=== PATIENT | male | born 1935 | race Caucasian/White ===

== ENCOUNTER 2016-10-01 14:26 | Inpatient (IN) | payer MEDICARE ==
[~2016-10-01] VITALS: Ht 180.3 cm; Wt 98.8 kg
[2016-10-04] MEDS ORDERED: GABA100C4 PO (08:24)
[2016-10-04] MEDS ORDERED: CARD1TAB PO (08:24)
[2016-10-04] MEDS ORDERED: SERT25TA83 PO (08:24)
--- NOTE | 2016-10-07 16:59 | MH ---
cc: Blair LAI M.D. DATE OF ADMISSION: 10/11/2016 ADMITTING DIAGNOSIS: Osteoarthritic degeneration right knee now being admitted for right total knee arthroplasty. ADMISSION HISTORY AND PHYSICAL This pleasant 81-year-old male is being admitted today for right total knee arthroplasty due to severe painful osteoarthritic degeneration right knee. PAST MEDICAL HISTORY: 1. Other past history the patient has a history of asthma. 2. He has had colon cancer in the past 3. depression 4. dizzy spells 5. emphysema 6. hernia 7. low back pain 8. neck pain 9. recent infection in his ear which was treated CURRENT MEDICATIONS 1. Gabapentin 2. Serotonin 3. Doxazosin PAST SURGICAL HISTORY: He had previous surgeries toe amputation in the past. REVIEW OF SYSTEMS Noncontributory. FAMILY HISTORY Noncontributory. SOCIAL HISTORY: Does not smoke or drink. ALLERGIES NO KNOWN DRUG ALLERGIES. PHYSICAL EXAMINATION IN GENERAL: We find a 81-year male well-developed, well-nourished x3 complain of pain in his right knee. VITAL SIGNS: Blood pressure 120/82, pulse 77 and regular, respirations 18, temperature 97.7, pulse oximetry 97% on room air 18. HEAD, EYES, EARS, NOSE, AND THROAT: Eyes Pupils equal, round, reactive to light and accommodation, extraocular muscles intact. Ears, nose, mouth clear. NECK: Neck is supple. LUNGS: Clear. HEART: Regular rate. ABDOMEN: Soft, positive bowel sounds, nontender. EXTREMITIES: The extremities reveals right knee to be tender with crepitance throughout range of motion. NEUROVASCULAR: He is otherwise neurovascular intact to his toes. IMPRESSION At this time is severe painful osteoarthritic degeneration right knee. PLAN: The plan is admission for right total knee arthroplasty today. The patient understands procedure well understands the use Hibiclens scrub and Bactroban preoperatively is given a prescription postoperative pain and anticoagulation control in the office and plans on going home after surgery. MD RAVEN Adames/laurence /4:36 PM /4:49 PM
[2016-10-11] MEDS ORDERED: TRANEXAMIC ACID INJ 988 MG in SODIUM CHLORIDE 0.9% INJ 100 ML IV SCH ×4 (08:15)
[2016-10-11] MEDS ORDERED: CHLORHEXIDINE GLUCONATE 4% SOLN 120 ML BTL TOP SCH (08:15)
[2016-10-11] MEDS ORDERED: EXPAREL PERI-ARTICULAR INJECTION (TOTAL VOL. 120 ML) P-ARTICULR SCH ×2 (08:15)
[2016-10-11] MEDS ORDERED: VANCOMYCIN 1000 MG/NS 250 ML (for <70 kg) IV SCH ×2 (08:15)
[2016-10-11] MEDS ORDERED: ceFAZolin 2 GM PREMIX 50 ML IV SCH (08:15)
[2016-10-11] MEDS ORDERED: LISI-515 PO (08:29)
[2016-10-11 08:31] VITALS: BP 114/69; PULSE 81; RESP 16; TEMP 98.3; O2SAT 94
[2016-10-11] MEDS ORDERED: BUPIVACAINE LIPOSO PF 1.3% INJ 20 ML, BUPIVACAINE PF 0.25% INJ 20 ML in SODIUM CHLORIDE... P-ARTICULR SCH (08:34)
[2016-10-11] MEDS ORDERED: METOPROLOL TARTRATE 25 MG TAB PO PRN (08:45)
[2016-10-11] MEDS ORDERED: INSULIN HUMAN REGULAR 1,000 UNITS/10 ML VIAL SQ PRN (08:45)
[2016-10-11] MEDS ORDERED: SODIUM CHLORID 0.9% 500 ML IV SCH (08:45)
[2016-10-11] MEDS ORDERED: LACTATED RINGER'S 1000 ML IV SCH (08:45)
--- NOTE | 2016-10-11 10:35 | HHI.FF ---
Face to Face Verification Diagnosis: (1) Status post total right knee replacement Physical Therapy Gait training Knee: Total knee, Protocol: Right, Full weight bearing Canvas Knee Splint: When in bed & 2 pillows btw thighs Nursing RN: 3 days/week x 2 weeks Nursing: [facility] teaching, Dressing changes Dressing Changes: Daily dressing change, 4x4s, Gauze, Paper tape I have seen patient Adryan Boyce on 10/11/16. My clinical findings support the need for the requested home health care services because: Limited ability to care for self High risk of falls I certify that my clinical findings support that this patient is homebound because: Unsteady gait/balance Blair Hernandez MD Oct 11, 2016 10:35
[2016-10-11] MEDS ORDERED: CPMMACHINE (10:37)
[2016-10-11] MEDS ORDERED: WALKER WHEELS/F1 MIS (10:37)
[2016-10-11] MEDS ORDERED: MISC-163 (10:37)
[2016-10-11] MEDS ORDERED: ACETAMINOPHEN/HYDROcodone 325 MG/7.5 MG TAB PO PRN (10:45)
[2016-10-11] MEDS ORDERED: NALOXONE HCL 0.4 MG/ML AMP IV PRN ×2 (10:45)
[2016-10-11] MEDS ORDERED: Post-op Orders (for Pharmacy) MISC XX ONE (10:45)
[2016-10-11] MEDS ORDERED: SODIUM CHLORIDE 0.9% FLUSH 5 ML FLUSH IVF PRN (10:45)
[2016-10-11] MEDS ORDERED: TRANEXAMIC ACID INJ 0 MG in SODIUM CHLORIDE 0.9% INJ 100 ML IV SCH (10:45)
[2016-10-11] MEDS ORDERED: ONDANSETRON HCL 4 MG/2 ML VIAL IVP PRN (10:45)
[2016-10-11] MEDS ORDERED: MORPHINE SULFATE 30 MG/30 ML PCA IV SCH (10:45)
[2016-10-11] MEDS ORDERED: ACETAMINOPHEN 325 MG TAB PO PRN (10:45)
[2016-10-11] MEDS ORDERED: diphenhydrAMINE HCL 50 MG/ML VIAL IV PRN (10:45)
[2016-10-11] MEDS ORDERED: MIDAZOLAM HCL 5 MG/5 ML VIAL ONE (10:46)
[2016-10-11] MEDS ORDERED: PILL SPLITTER OTHER PRN (11:45)
[2016-10-11] MEDS ORDERED: ePHEDrine/NS 25 MG/5 ML SYR IV ONE (12:00)
[2016-10-11] MEDS ORDERED: PHENYLEPH/NS 1000 MCG/10 ML SYR IV ONE (12:00)
[2016-10-11] MEDS ORDERED: NEOSTIGMINE 3 MG/3 ML SYR IV ONE (12:00)
[2016-10-11] MEDS ORDERED: LACTATED RINGER'S 1000 ML INJ 1,000 ML IV ONE (12:00)
[2016-10-11] MEDS ORDERED: PROPOFOL 200 MG/20 ML AMP IV ONE (12:00)
[2016-10-11] MEDS ORDERED: ONDANSETRON HCL 4 MG/2 ML VIAL IV PUSH ONE (12:00)
[2016-10-11] MEDS ORDERED: BUPIVACAINE HCL PF 0.5% 30 ML VIAL NB ONE (13:01)
[2016-10-11] MEDS ORDERED: ceFAZolin INJ 1,000 MG VIAL XX ONE (13:30)
[2016-10-11] MEDS ORDERED: BUPIVACAINE LIPOSOME PF 1.3% 20 ML VIAL ONE (13:30)
[2016-10-11] MEDS: PCA - TOTAL MG MORPHINE DELIVERED PER SHIFT SCH ×2 (14:00→22:00)
[2016-10-11] MEDS: LACTATED RINGER'S 1000 ML INJ 1,000 ML IV SCH ×2 (16:40→23:02)
--- NOTE | 2016-10-11 16:42 | RADRPT ---
EXAM DATE/TIME: 10/11/2016 15:58 [facility] COMPARISON: No previous studies available for comparison. INDICATIONS : Post op right knee surgery. MEDICAL HISTORY : None. SURGICAL HISTORY : None. ENCOUNTER: Initial ACUITY: 1 day PAIN SCORE: 0/10 LOCATION: Right knee FINDINGS: Two view examination of the right knee demonstrates total knee arthroplasty. All 3 components are eliza ropriately positioned. No fracture. CONCLUSION: Appropriate postoperative appearance of the right knee status post total arthroplasty. Adis Elam MD on October 11, 2016 at 16:40 Board Certified Radiologist. This report was verified electronically.
[2016-10-11] MEDS ORDERED: DO NOT ADM ANY ANTICOAGULANT DRUGS XX PRN (17:45)
[2016-10-11] MEDS: GABAPENTIN 100 MG CAP PO SCH ×2 (20:07→20:18)
[2016-10-11] MEDS: SERTRALINE HCL 50 MG TAB PO SCH ×2 (20:08→20:18)
[2016-10-11 20:27] VITALS: BP 120/63; PULSE 89; RESP 18; TEMP 95.9; O2SAT 96
[2016-10-11 20:58] VITALS: BP 126/63; PULSE 87; RESP 21; TEMP 96.9; O2SAT 94
[2016-10-11] MEDS ORDERED: TEMAZEPAM 15 MG CAP PO PRN (21:00)
[2016-10-11] MEDS: SODIUM CHLORIDE 0.9% FLUSH 5 ML FLUSH IVF SCH (21:00)
[2016-10-11] MEDS: DOXAZOSIN MESYLATE 1 MG TAB PO SCH (22:39)
[2016-10-12] VITALS (9 sets, daily range): BP systolic 93–132; BP diastolic 50–65; PULSE 74–93; RESP 16–22; TEMP 96.2–98.3; O2SAT 91–98
[2016-10-12] MEDS: PCA - TOTAL MG MORPHINE DELIVERED PER SHIFT SCH (06:00)
[2016-10-12 08:10] LABS: HEMATOCRIT 30.3 % (39.0-51.0); REVIEW FLAG FINAL
[2016-10-12] MEDS: SODIUM CHLORIDE 0.9% FLUSH 5 ML FLUSH IVF SCH ×2 (08:44→21:18)
--- NOTE | 2016-10-12 08:53 | PD.ORT.PN ---
Subjective Subjective Remarks pt comfortable. No complaints. Objective Vitals Vital Signs Date Time Temp Pulse Resp B/P Pulse Ox O2 Delivery O2 Flow Rate FiO2 10/12/16 08:00 97.6 74 18 100/50 94 10/12/16 06:00 21 10/12/16 04:00 97.8 86 16 106/60 98 10/12/16 01:48 94 10/12/16 00:00 98.3 86 16 111/53 92 10/11/16 22:00 20 10/11/16 20:58 96.9 87 21 126/63 94 10/11/16 20:27 95.9 89 18 120/63 96 10/11/16 18:00 82 12 140/69 95 Room Air 10/11/16 17:00 97.2 85 12 160/83 96 Nasal Cannula 2 10/11/16 16:45 82 12 147/81 98 Nasal Cannula 2 10/11/16 16:40 14 10/11/16 16:30 84 14 145/82 96 Nasal Cannula 2 10/11/16 16:00 83 12 140/79 94 Nasal Cannula 2 10/11/16 15:58 97.7 86 14 138/83 95 Nasal Cannula 2 I/O 10/11/16 10/11/16 10/11/16 10/12/16 10/12/16 10/12/16 07:00 15:00 23:00 07:00 15:00 23:00 Intake Total 1390 ml 1080 ml Output Total 100 ml 900 ml Balance 1290 ml 180 ml Intake Oral 240 ml 1080 ml IV Total 150 ml Other 1000 ml Output Urine Total 900 ml Estimated Blood Loss 100 ml # Voids 1 # Bowel Movements 0 Result Diagram: 10/12/16 0730 Imaging Last 24 hours Impressions Knee X-Ray 10/11/16 1032 Signed Impressions: Service Date/Time: Tuesday, October 11, 2016 15:58 - CONCLUSION: Appropriate postoperative appearance of the right knee status post total arthroplasty. Adis Elam MD Objective Remarks Able to straight leg raise. Dressing dry and intact. Eating breakfast in bed at present. No calf tenderness. Assessment & Plan Ortho Post Op Day #: 1 Problem List: Assessment and Plan OOB, PT, daily wound care. DC [employer] today. Blair Hernandez MD Oct 12, 2016 08:53
[2016-10-12] MEDS ORDERED: LISINOPRIL 20 MG TAB PO SCH (09:00)
[2016-10-12] MEDS: MAGNESIUM HYDROXIDE SUSP 30 ML CUP PO SCH ×2 (09:39→21:00)
[2016-10-12] MEDS: LACTATED RINGER'S 1000 ML INJ 1,000 ML IV SCH ×2 (11:32→21:18)
[2016-10-12] MEDS: ACETAMINOPHEN/HYDROcodone 325 MG/7.5 MG TAB PO PRN (13:37)
[2016-10-12] MEDS: ENOXAPARIN SODIUM 30 MG/0.3 ML SYRINGE SQ SCH (15:33)
--- NOTE | 2016-10-12 16:40 | PD.CONS ---
HPI Service [facility] Hospitalists Consult Requested By Dr. Isaac Hernandez Reason for Consult Medical Management Primary Care Physician Ananda Miner MD Diagnoses: History of Present Illness Mr. Boyce is a pleasant 81 y/o male with Osteoarthritis, COPD, CKD, stage 3, hyperlipidemia, and RLS. He was admitted to [facility] on 10/11/16 for elective right total knee arthroplasty with Dr. Hernandez. [facility] Hospitalist team was consulted to help with medical management. Pt is seen post-operatively and is doing well. Vital signs are stable and BP is low normal with home medications on hold. This is likely the result of anesthesia and pain medications. Pt otherwise without any complaints. Denies any chest pain, SOB, palpitations, dizziness, nausea/vomiting, abd pain, fevers or chills. Review of Systems Constitutional: DENIES: Fever, Chills Respiratory: DENIES: Shortness of breath Cardiovascular: DENIES: Chest pain, Palpitations Gastrointestinal: DENIES: Abdominal pain, Nausea, Vomiting Musculoskeletal: COMPLAINS OF: Joint pain Integumentary: DENIES: Rash Neurologic: DENIES: Headache Past Family Social History Past Medical History BPH Chronic major depression Restless leg syndrome Chronic headaches Hx of colon cancer s/p right hemicolectomy in 1997 and chemotherapy because of some invasion of the cancer through the colon wall Stage 3, CKD Cognitive function impaired/memory problems COPD, prescribed Ventolin inhaler PRN but has not been using it. Empty sella Osteoarthritis Hyperlipidemia Vitamin D insufficiency Past Surgical History Right knee arthroscopy and repair on meniscus in 2010 Exploratory laparotomy with removal of contaminated mesh and extensive ADRIEL in 2007 Incisional hernia repair in 2007 Right hemicolectomy in 1997 Rhinoplasty Penile prosthesis in 2005 and revision in 2006 Vasectomy in 1972 Reported Medications Lisinopril 20 Mg PO DAILY Sertraline 25 Mg PO HS Gabapentin 100 Mg PO HS Cardura 1 Mg Tab 1 Mg PO HS Allergies: Coded Allergies: No Known Allergies (Verified , 10/04/16) Family History Brother with myelofibrosis Mother with chronic pain Social History Hx of tobacco use, smoked 1/2ppd x 10 years and then an occasional cigar prior to quitting that around 2009 Occasional alcohol use 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[employer] [place] Physical Exam Vital Signs Vital Signs Date Time Temp Pulse Resp B/P Pulse Ox O2 Delivery O2 Flow Rate FiO2 10/12/16 13:35 124/65 10/12/16 12:01 96.2 93 18 93/54 91 10/12/16 11:01 97 21 10/12/16 08:00 97.6 74 18 100/50 94 10/12/16 06:00 21 10/12/16 04:00 97.8 86 16 106/60 98 10/12/16 01:48 94 10/12/16 00:00 98.3 86 16 111/53 92 10/11/16 22:00 20 10/11/16 20:58 96.9 87 21 126/63 94 10/11/16 20:27 95.9 89 18 120/63 96 10/11/16 18:00 82 12 140/69 95 Room Air 10/11/16 17:00 97.2 85 12 160/83 96 Nasal Cannula 2 10/11/16 16:45 82 12 147/81 98 Nasal Cannula 2 10/11/16 16:40 14 10/11/16 16:30 84 14 145/82 96 Nasal Cannula 2 Physical Exam GENERAL: This is a well-nourished, well-developed patient, in no apparent distress. HEENT: Atraumatic. Normocephalic. No temporal or scalp tenderness. No scleral icterus. Airway patent. NECK: Trachea midline, supple. CARDIO: Regular. RESP: CTA bilaterally. No wheezes, rales, or rhonchi. ABD: +BS, soft, non-tender, nondistended. EXT: Right knee bandages are c/d/i NEURO: Awake and alert. Motor and sensory grossly within normal limits. Normal speech. Laboratory Laboratory Tests Test 10/12/16 07:30 Hemoglobin 10.1 Hematocrit 30.3 Result Diagram: 10/12/16 0730 Imaging Last Impressions Knee X-Ray 10/11/16 1032 Signed Impressions: Service Date/Time: Tuesday, October 11, 2016 15:58 - CONCLUSION: Appropriate postoperative appearance of the right knee status post total arthroplasty. Adis Elam MD Assessment and Plan Problem List: (1) Osteoarthritis of right knee Status: Chronic Plan: - s/p right total knee arthroplasty on 10/11/[address] Hernandez - Post-op pain control per Ortho - IS - PT - Constipation precautions - DVT prophylaxis - Pt plans for HHC/PT at discharge. - Hold Lisinopril for now as BP is low/normal, resume as BP allows. Likely secondary to pain meds and anesthesia (2) COPD (chronic obstructive pulmonary disease) Status: Chronic Plan: - Stable. - Pt has Ventolin inhaler prescribed for as needed but does not use it much - Duonebs PRN (3) Hyperlipidemia Status: Chronic (4) Depression Status: Chronic Plan: - Cont. home meds (5) BPH (benign prostatic hyperplasia) Status: Chronic Plan: - Home meds resumed Assessment and Plan Patient examined. Assessment and plan formulated with Lena Quan PA-C. I agree with the above. Lena Quan Oct 12, 2016 16:40 Reyes Oliveira DO Oct 17, 2016 07:03
[2016-10-12] MEDS ORDERED: RESP: ALBUTEROL 2.5 MG/IPRATROPIUM 0.5 MG NEB (PRN) NEB (16:45)
[2016-10-12] MEDS: SENNOSIDES 8.6 MG TAB PO SCH (21:15)
[2016-10-12] MEDS: DOCUSATE SODIUM 100 MG CAP PO SCH (21:15)
[2016-10-12] MEDS: DOXAZOSIN MESYLATE 1 MG TAB PO SCH (21:17)
[2016-10-12] MEDS: MULTIVITAMINS/MINERALS THERAPEUTIC TAB PO SCH (21:17)
[2016-10-12] MEDS: GABAPENTIN 100 MG CAP PO SCH (21:17)
[2016-10-12] MEDS: SERTRALINE HCL 50 MG TAB PO SCH (21:17)
[2016-10-13] VITALS: BP 134/68; PULSE 93; RESP 20; TEMP 99.2; O2SAT 94
[2016-10-13] MEDS: ENOXAPARIN SODIUM 30 MG/0.3 ML SYRINGE SQ SCH ×2 (02:27→15:24)
[2016-10-13] MEDS: ACETAMINOPHEN/HYDROcodone 325 MG/7.5 MG TAB PO PRN ×3 (02:27→15:25)
[2016-10-13 07:08] LABS: BICARBONATE 25.7 MEQ/L (21.0-32.0); MAGNESIUM 2.1 MG/DL (1.5-2.5); POTASSIUM 4.5 MEQ/L (3.5-5.1)
[2016-10-13 07:14] LABS: AUTOMATED NEUTROPHIL # 6.2 TH/MM3 (1.8-7.7); BASOPHIL % 0.3 % (0.0-2.0); EOSINOPHIL % 0.2 % (0.0-4.0); HEMATOCRIT 28.3 % (39.0-51.0); HEMO FLAGS DIFF FINAL; LYMPH % 15.6 % (9.0-44.0); LYMPHOCYTE # 1.3 TH/MM3 (1.0-4.8); MEAN CELL VOLUME 83.1 FL (80.0-100.0); MEAN CORPUSCULAR HEMOGLOBIN 28.2 PG (27.0-34.0); MEAN CORPUSCULAR HGB CONC 33.9 % (32.0-36.0); NEUT % 71.9 % (16.0-70.0); PLATELET COUNT 169 TH/MM3 (150-450); RED BLOOD COUNT 3.41 MIL/MM3 (4.50-5.90); RED CELL DISTRIBUTION WIDTH 14.7 % (11.6-17.2); WHITE BLOOD COUNT 8.6 TH/MM3 (4.0-11.0)
[2016-10-13 08:00] VITALS: BP 121/63; PULSE 89; RESP 18; TEMP 98.2; O2SAT 92
--- NOTE | 2016-10-13 08:16 | PD.ORT.PN ---
Subjective Subjective Remarks pt comfortable. No complaints. Objective Vitals Vital Signs Date Time Temp Pulse Resp B/P Pulse Ox O2 Delivery O2 Flow Rate FiO2 10/13/16 00:00 99.2 93 20 134/68 94 10/12/16 20:58 97.4 90 22 132/62 94 10/12/16 16:00 98.2 93 16 124/59 93 10/12/16 13:35 124/65 10/12/16 12:01 96.2 93 18 93/54 91 10/12/16 11:01 97 21 I/O 10/12/16 10/12/16 10/12/16 10/13/16 10/13/16 10/13/16 07:00 15:00 23:00 07:00 15:00 23:00 Intake Total 1080 ml 1200 ml 480 ml Output Total 900 ml 200 ml Balance 180 ml 1200 ml 480 ml -200 ml Intake Oral 1080 ml 1200 ml 480 ml Output Urine Total 900 ml 200 ml # Voids 4 2 # Bowel Movements 0 0 Result Diagram: 10/13/16 0612 10/13/16 0612 Imaging Last 24 hours Impressions Knee X-Ray 10/11/16 1032 Signed Impressions: Service Date/Time: Tuesday, October 11, 2016 15:58 - CONCLUSION: Appropriate postoperative appearance of the right knee status post total arthroplasty. Adis Elam MD Objective Remarks Able to straight leg raise. Dressing dry and intact. Eating breakfast in chair. No calf tenderness. Assessment & Plan Ortho Post Op Day #: 2 Problem List: Assessment and Plan OOB, PT, daily wound care. Home tomorrow with C and PT. Blair Hernandez MD Oct 13, 2016 08:16
[2016-10-13] MEDS: DOCUSATE SODIUM 100 MG CAP PO SCH ×2 (09:00→20:38)
[2016-10-13] MEDS: MAGNESIUM HYDROXIDE SUSP 30 ML CUP PO SCH ×2 (09:00→20:38)
[2016-10-13] MEDS: SODIUM CHLORIDE 0.9% FLUSH 5 ML FLUSH IVF SCH ×2 (09:00→20:38)
[2016-10-13] MEDS: MULTIVITAMINS/MINERALS THERAPEUTIC TAB PO SCH ×2 (09:04→20:37)
[2016-10-13] MEDS ORDERED: BACITRACIN OINT 0.9 GM PKT TOP PRN (10:15)
[2016-10-13 11:00] VITALS: BP 142/78; PULSE 87; RESP 18; TEMP 98; O2SAT 96
[2016-10-13 12:00] VITALS: BP 142/77; PULSE 80; RESP 18; TEMP 98; O2SAT 96
[2016-10-13] MEDS: LACTATED RINGER'S 1000 ML INJ 1,000 ML IV SCH ×2 (12:32→20:39)
--- NOTE | 2016-10-13 12:50 | MP ---
cc: Blair HERNANDEZ M.D. DATE OF SURGERY: 10/11/2016 PREOPERATIVE DIAGNOSIS Osteoarthritic degeneration, right knee. POSTOPERATIVE DIAGNOSIS Osteoarthritic degeneration, right knee. SURGERY PERFORMED Right total knee arthroplasty using the Consensus knee system the bespoke pre-made cutting jigs, sizes 6 femur, 5 tibia, 10 insert and a size 3 patella 10 mm thick, and two batches of Weldon blue cement. SURGEON Dr. Hernandez DENTAL INSURANCE COORDINATOR FARIDA Anne ANESTHESIA General intubation and block. PROCEDURE After successful induction of anesthesia, the patient is placed on the operating room table in the supine position. The knee is prepped and draped in the usual manner. A tourniquet is inflated at the upper thigh and set to 300 mmHg pressure after exsanguination of the lower extremity. A longitudinal incision is made extending from 3 inches proximal to the superior pole of the patella, across the patella in longitudinal fashion, and down past the insertion of the tibial tubercle into the proximal tibia. The incision is carried down through subcutaneous tissue along the medial aspect of the patella and retinaculum, down through the capsule to expose the knee joint. The patella and patellar tendon are freed up enough to allow the patella to be inverted and retracted off the lateral side of the knee joint. The knee joint is left exposed. Small osteophytes are removed. All soft tissue is removed to allow proper position of the femoral and tibial cutting jig guide. The first femoral jig is then inserted along the distal end of the femur after first measuring to decide whether this is a small, medium, or large component. The notch is then drilled and the tibial cutting guide inserted into the femoral cutting guide, along with the ankle brace to allow for proper measurement of the tibial cutting surface that needed to be resected. Pins are inserted into the tibial cutting jig and femoral cutting jig to hold them in place. An oscillating saw is then used to resect the surface of the tibia. The surface of the tibia is then completely removed using sharp and blunt dissection. The anterior and posterior cuts of the femur are then made as well using an oscillating saw through the cutting guide. All guides are then removed and the varus/valgus angulation cutting guide applied to the femur for proper measurement of the proper amount of valgus. The anterior cutting guide for the femur is then inserted at the anterior femoral cuts made. Next, the first block trial is inserted into the femur to allow for proper condyle drill holes to be made which are then made followed by removal of the bone between the condyles using an oscillating saw as well as the bone removed at the most posterior surface of the condyle. After this, this guide is removed and the chamfer cuts made using the chamfer cutting guide from both anterior and posterior. Next, the femoral trial is then inserted, the tibial surface reflected anterior to expose the tibial surface and a tibial stem guide is inserted after first measuring for a standard, standard plus, large, or large plus surface to be used. After the stem is impacted the trial tibial surface is applied followed by the trial meniscal components. After full range of motion is found with the appropriate length meniscal components varying the patella is prepared by resecting the posterior aspect of the patella using an oscillating saw, inserting a trial. The trial is then removed and the cruciate cutting guide applied using the bur to cut the cruciate cuts. After cruciate cuts are made all trials are removed. The wound is irrigated copiously with antibiotic solution and Water Pik and the actual components inserted into place using the Consensus knee system the bespoke pre-made cutting jigs, sizes 6 femur, 5 tibia, 10 insert and a size 3 patella 10 mm thick, and two batches of Weldon blue cement. After the cement has hardened and the components are found to have full range of motion with no instability, the tourniquet is deflated, total tourniquet time being 51 minutes at 300 mmHg pressure. A 120 cc mixture of and 0.25% Marcaine plain was inserted around the knee joint for extra pain control. The wound was irrigated copiously with antibiotic solution, meticulous hemostasis achieved. The deep fascia was approximated with #2 Quill, subcutaneous tissue approximated using interrupted and running 2-0 and 3-0 Monocryl sutures. Steri-Strips, sterile dressing and knee immobilizer were applied. No drain was utilized. Estimated blood loss 100 cc. Sponge and suture count were correct. The patient tolerated the procedure well and left the Operating Room in satisfactory condition. MD RAVEN Adames/MAGGI /3:29 PM /12:34 PM
[2016-10-13 16:00] VITALS: BP 128/66; PULSE 88; RESP 18; TEMP 98.9; O2SAT 94
[2016-10-13 20:00] VITALS: BP 142/68; PULSE 87; RESP 18; TEMP 97.8; O2SAT 98
[2016-10-13] MEDS: SERTRALINE HCL 50 MG TAB PO SCH (20:37)
[2016-10-13] MEDS: GABAPENTIN 100 MG CAP PO SCH (20:37)
[2016-10-13] MEDS: DOXAZOSIN MESYLATE 1 MG TAB PO SCH (20:37)
[2016-10-13] MEDS: SENNOSIDES 8.6 MG TAB PO SCH (20:38)
[2016-10-14 00:24] VITALS: BP 134/65; PULSE 99; RESP 18; TEMP 100; O2SAT 95
[2016-10-14] MEDS: ENOXAPARIN SODIUM 30 MG/0.3 ML SYRINGE SQ SCH (03:01)
[2016-10-14 04:17] VITALS: BP 129/62; PULSE 93; RESP 18; TEMP 97; O2SAT 95
[2016-10-14 08:00] VITALS: BP 134/71; PULSE 100; RESP 18; TEMP 96.6; O2SAT 94
[2016-10-14] MEDS: MAGNESIUM HYDROXIDE SUSP 30 ML CUP PO SCH (09:00)
[2016-10-14] MEDS: DOCUSATE SODIUM 100 MG CAP PO SCH (09:00)
[2016-10-14] MEDS: MULTIVITAMINS/MINERALS THERAPEUTIC TAB PO SCH (09:02)
[2016-10-14] MEDS: SODIUM CHLORIDE 0.9% FLUSH 5 ML FLUSH IVF SCH (09:05)
[2016-10-14] MEDS: LACTATED RINGER'S 1000 ML INJ 1,000 ML IV SCH (10:55)
--- NOTE | 2016-10-14 11:35 | PD.ORT.PN ---
Subjective Subjective Remarks pt comfortable. No complaints. Objective Vitals Vital Signs Date Time Temp Pulse Resp B/P Pulse Ox O2 Delivery O2 Flow Rate FiO2 10/14/16 04:17 97.0 93 18 129/62 95 10/14/16 00:24 100.0 99 18 134/65 95 10/13/16 20:00 97.8 87 18 142/68 98 10/13/16 16:00 98.9 88 18 128/66 94 10/13/16 12:00 98.0 80 18 142/77 96 I/O 10/13/16 10/13/16 10/13/16 10/14/16 10/14/16 10/14/16 07:00 15:00 23:00 07:00 15:00 23:00 Intake Total 480 ml 2050 ml Output Total 200 ml 1200 ml Balance -200 ml 480 ml 850 ml Intake Oral 480 ml 2050 ml Output Urine Total 200 ml 1200 ml # Voids 2 # Bowel Movements 2 0 Result Diagram: 10/13/16 0612 10/13/16 0612 Imaging Last 24 hours Impressions Knee X-Ray 10/11/16 1032 Signed Impressions: Service Date/Time: Tuesday, October 11, 2016 15:58 - CONCLUSION: Appropriate postoperative appearance of the right knee status post total arthroplasty. Adis Elam MD Objective Remarks Able to straight leg raise. Dressing dry and intact. Eating breakfast in chair. No calf tenderness. Assessment & Plan Ortho Post Op Day #: 3 Problem List: Assessment and Plan OOB, PT, daily wound care. Home today with HHC and PT. Blair Hernandez MD Oct 14, 2016 11:35
--- NOTE | 2016-10-14 11:38 | HHI.DS ---
Discharge Summary Admission Date Oct 11, 2016 at 07:39 Discharge Date: Oct 14, 2016 Admitting Diagnosis Osteo-arthritic degeneration right knee Diagnosis: (1) Status post total right knee replacement Diagnosis: Principal Brief History This is a 81 year old male patient CBC/BMP: 10/13/16 0612 10/13/16 0612 Significant Findings Laboratory Tests Test 10/12/16 10/13/16 07:30 06:12 Hemoglobin 10.1 GM/DL 9.6 GM/DL (13.0-17.0) (13.0-17.0) Hematocrit 30.3 % 28.3 % (39.0-51.0) (39.0-51.0) Red Blood Count 3.41 MIL/MM3 (4.50-5.90) Neutrophils (%) (Auto) 71.9 % (16.0-70.0) Monocytes (%) (Auto) 12.0 % (0.0-8.0) Monocytes # (Auto) 1.0 TH/MM3 (0-0.9) Blood Urea Nitrogen 23 MG/DL (7-18) Creatinine 1.42 MG/DL (0.60-1.30) Estimat Glomerular Filtration 48 ML/MIN (>89) Rate Random Glucose 118 MG/DL (74-106) Calcium Level 8.2 MG/DL (8.5-10.1) PE at Discharge Able to straight leg raise. Dressing dry and intact. Eating breakfast in chair. No calf tenderness. Hospital Course Patient was admitted on 10/11/16 with severe pain in his right knee from osteoarthritic degeneration. On the day of admission he underwent a right total knee arthroplasty. He received a course of prophylactic IV antibiotics and started on anticoagulation therapy within 23 hours. He began out of bed tolerating food and fluids well and continued with daily wound care physical therapy he was able to have bowel movements without problem and was discharged on by mouth pain medication on postoperative day 3 in good condition with instructions for home healthcare and daily wound care. He was discharged with appointment to see Dr. Hernandez in 1 week time for follow-up care. Pt Condition on Discharge: Good Discharge Disposition: Disch w/ Home Health Serv Discharge Instructions Diet Instructions: As Tolerated, No Restrictions Activities You Can Perform: Full Weight Bearing, Shower Only-No Bath Activities to Avoid: Bathing, Driving Blair Hernandez MD Oct 14, 2016 11:38
[2016-10-14 12:00] VITALS: BP 140/69; PULSE 91; RESP 18; TEMP 96.8; O2SAT 96
== END 2016-10-14 16:10 | disposition home health service (06) | DRG 470 ==
LOC: HSDI 10-11 07:39 → N06B 10-11 19:48
PROVIDERS: ADMIT Surgery; ATTEND Surgery
PROC: 3E0T3BZ Introduction of Anesthetic Agent into Peripheral Nerves and Plexi, Percutaneous Approach (ICD-10-PCS; 2016-10-11)
PROC: 0SRC0J9 Replacement of Right Knee Joint with Synthetic Substitute, Cemented, Open Approach (ICD-10-PCS; principal; 2016-10-11 12:49)
DX: M17.11 Unilateral primary osteoarthritis, right knee (principal); N18.3 Chronic kidney disease, stage 3 (moderate); J44.9 Chronic obstructive pulmonary disease, unspecified; E55.9 Vitamin D deficiency, unspecified; F32.9 Major depressive disorder, single episode, unspecified; J45.909 Unspecified asthma, uncomplicated; Z85.038 Personal history of other malignant neoplasm of large intestine; R41.3 Other amnesia; M54.5 Low back pain; M54.2 Cervicalgia; N40.0 Benign prostatic hyperplasia without lower urinary tract symptoms; G25.81 Restless legs syndrome; R51 Headache; Z92.21 Personal history of antineoplastic chemotherapy; E78.5 Hyperlipidemia, unspecified; Z87.891 Personal history of nicotine dependence
CPT/HCPCS: 73560; 80048; 83735; 85014; 85018; 85025; 94150; C1776; C9290; J0690; J1650; J2250; J2270; J2370; J2405; J2710; J3010; J3370; J7050; J7120; L1830

== ENCOUNTER → 2016-10-04 | Outpatient (CLI) | payer MEDICARE ==
[~2016-10-04] MED LIST: CARD1TAB PO; CPMMACHINE; DOXA1TAB3 PO; GABA100C4 PO; GABA300 PO; LISI-515 PO; MISC-163; SERT25TA83 PO; WALKER WHEELS/F1 MIS; ZOLO25TA PO
[2016-10-04 08:51] LABS: AUTOMATED NEUTROPHIL # 3.2 TH/MM3 (1.8-7.7); BASOPHIL % 0.7 % (0.0-2.0); EOSINOPHIL # 0.2 TH/MM3 (0-0.4); EOSINOPHIL % 2.9 % (0.0-4.0); HEMO FLAGS DIFF FINAL; LYMPHOCYTE # 1.7 TH/MM3 (1.0-4.8); MEAN CELL VOLUME 83.4 FL (80.0-100.0); MEAN CORPUSCULAR HEMOGLOBIN 27.7 PG (27.0-34.0); MEAN CORPUSCULAR HGB CONC 33.2 % (32.0-36.0); MONO % 8.7 % (0.0-8.0); NEUT % 57.7 % (16.0-70.0); PLATELET COUNT 210 TH/MM3 (150-450); RED BLOOD COUNT 4.56 MIL/MM3 (4.50-5.90); WHITE BLOOD COUNT 5.6 TH/MM3 (4.0-11.0)
[2016-10-04 08:54] LABS: BLOOD, URINE NEG (NEG); COMMENT (UR) CULT NOT INDICATED; CULTURE IF INDICATED CULT NOT INDICATED; GLUCOSE,URINE NEG (NEG); KETONE, URINE NEG (NEG); MUCUS URINE FEW /lpf (OCC); NITRITE,URINE NEG (NEG); SQUAMOUS EPITHELIAL CELL URINE <1 /hpf (0-5); TRANSITIONAL EPI CELLS, URINE <1 /hpf; URINE COLOR YELLOW (YELLW/STRAW)
[2016-10-04 09:01] LABS: APTT (PATIENT) 28.6 SEC (24.3-30.1); PROTHROMBIN TIME - PATIENT 10.7 SEC (9.8-11.6)
[2016-10-04 09:26] LABS: ALKALINE PHOSPHATASE 61 U/L (45-117); ALT (GPT) 14 U/L (12-78); ANION GAP 7 MEQ/L (5-15); AST (GOT) 15 U/L (15-37); BICARBONATE 26.5 MEQ/L (21.0-32.0); BLOOD UREA NITROGEN 21 MG/DL (7-18); CHLORIDE 109 MEQ/L (98-107); GLOMERULAR FILTRATION RATE 48 ML/MIN (>89); GLUCOSE,FASTING 94 MG/DL (74-99); POTASSIUM 5.2 MEQ/L (3.5-5.1); SODIUM (NA) 142 MEQ/L (136-145); TOTAL BILIRUBIN ADULT 0.4 MG/DL (0.2-1.0)
--- NOTE | 2016-10-05 17:58 | EKG ---
Date Performed: 10/04/2016 Time Performed: 08:18:32 PTAGE: 81 years EKG: Sinus rhythm WITH FIRST DEGREE AV BLOCK POSSIBLE ANTERIOR MYOCARDIAL INFARCTION, OF INDETERMINATE AGE Since previ ous tracing, no significant change noted ABNORMAL ECG PREVIOUS TRACING : 10/19/2010 09.35 DOCTOR: Juanito Quinones Interpretating Date/Time 10/05/2016 17:56:12
== END ==
LOC: CPRE 07:54
PROVIDERS: ATTEND Surgery
DX: Z01.812 Encounter for preprocedural laboratory examination (principal); Z01.810 Encounter for preprocedural cardiovascular examination; M17.11 Unilateral primary osteoarthritis, right knee; I44.0 Atrioventricular block, first degree; R94.31 Abnormal electrocardiogram [ECG] [EKG]
CPT/HCPCS: 36415; 80053; 81001; 85025; 85610; 85730; 93005

== ENCOUNTER → 2017-10-04 | Outpatient (CLI) | payer MEDICARE ==
[~2017-10-04] MED LIST changes: -DOXA1TAB3 PO; -GABA300 PO; -ZOLO25TA PO
--- NOTE | 2017-10-06 10:32 | RSPPFT ---
DATE OF PROCEDURE: 10/04/17 COMMENTS: Spirometry shows FVC of 2.5 at 64% of predicted, FEV1 of 1.3 at 45%, FV1/FVC ratio is decreased at FEF 25, FEF 50, FEF 75 and FEF 25-75. There is a good response after bronchodilator treatment. Lung volumes show residual volume is increased. TLC is normal. Diffusion capacity is normal when corrected for lung volumes. Flow volume loop indicates an obstructive pattern. 6-minute walk test shows no de-saturation. IMPRESSION: 1. Moderately severe obstructive lung disease. 2. Good response after bronchodilator treatment. 3. Lung volumes show hyperinflation. 4. Normal diffusion capacity. 5. 6-minute walk test shows no de-saturation.
== END ==
LOC: PHRSP 09:38
PROVIDERS: ATTEND Specialist
DX: R06.00 Dyspnea, unspecified (principal)
CPT/HCPCS: 94060; 94618; 94726; 94729